=== PATIENT | female | born 1995 | race Caucasian/White ===

== ENCOUNTER → 2017-03-10 | Outpatient (CLI) | payer OTHER ==
--- NOTE | 2017-03-11 07:23 | REP ---
RIGHT ANKLE, FOUR VIEWS: HISTORY: Pain. There is no acute fracture or dislocation. The joint space is normal in appearance. IMPRESSION: There is no acute fracture or dislocation. Signed by Stan Prince MD 03/11/2017 08:30 A
== END ==
LOC: M LRY 17:18
PROVIDERS: ATTEND Nurse Practitioner Family
DX: M25.571 Pain in right ankle and joints of right foot (principal)

== ENCOUNTER → 2017-04-04 | Outpatient (REF) | payer OTHER ==
[2017-04-04 17:00] LABS: MEAN CORPUSCULAR HEMOGLOBIN 31.6 pg (27.0-33.0); MEAN CORPUSCULAR HGB CONC 35.5 g/dl (32.0-36.5); MEAN CORPUSCULAR VOLUME 89.1 fl (80.0-96.0); RED CELL DISTRIBUTION WIDTH 12.1 % (11.5-14.5)
[2017-04-04 17:36] LABS: ALBUMIN/GLOBULIN RATIO 1.18 (1.00-1.93); ALKALINE PHOSPHATASE 74 U/L (45-117); ALT/SGPT 42 U/L (12-78); ANION GAP 9 MEQ/L (8-16); AST/SGOT 16 U/L (15-37); BILIRUBIN,TOTAL 0.4 MG/DL (0.2-1.0); BLOOD UREA NITROGEN 11 MG/DL (7-18); CALCIUM LEVEL 9.2 MG/DL (8.5-10.1); CARBON DIOXIDE LEVEL 25 MEQ/L (21-32); CHLORIDE LEVEL 107 MEQ/L (98-107); CHOLESTEROL LEVEL 186 MG/DL (<200); CREATININE FOR GFR 0.87 MG/DL (0.55-1.02); GLUCOSE, FASTING 83 MG/DL (70-105); SODIUM LEVEL 141 MEQ/L (136-145); TOTAL PROTEIN 7.4 GM/DL (6.4-8.2); TRIGLYCERIDES LEVEL 219 MG/DL (<150)
== END ==
LOC: M SFHCLERA 14:33
PROVIDERS: ATTEND Family Medicine
DX: E66.01 Morbid (severe) obesity due to excess calories (principal); J45.990 Exercise induced bronchospasm; Z13.220 Encounter for screening for lipoid disorders

== ENCOUNTER → 2018-07-16 | Outpatient (REF) | payer OTHER | LOC: M SFHCLERA 09:36 | DX: D36.10 Benign neoplasm of peripheral nerves and autonomic nervous system, unspecified (principal) | CPT/HCPCS: 88305 ==

== ENCOUNTER → 2018-10-22 | Outpatient (REF) | payer OTHER ==
[2018-10-22 17:14] LABS: HEMOGLOBIN A1c 5.2 %
[2018-10-22 17:22] LABS: ALBUMIN 4.1 GM/DL (3.2-5.2); ALT/SGPT 66 U/L (12-78); BILIRUBIN,TOTAL 0.5 MG/DL (0.2-1.0); BLOOD UREA NITROGEN 13 MG/DL (7-18); CALCIUM LEVEL 8.9 MG/DL (8.5-10.1); CARBON DIOXIDE LEVEL 24 MEQ/L (21-32); CHLORIDE LEVEL 109 MEQ/L (98-107); CREATININE FOR GFR 0.95 MG/DL (0.55-1.30); FREE T4 1.19 NG/DL (0.76-1.46); GLOMERULAR FILTRATION RATE > 60.0 (>60); GLUCOSE, FASTING 86 MG/DL (70-100); POTASSIUM SERUM 4.1 MEQ/L (3.5-5.1); PROLACTIN 8.4 NG/ML; SODIUM LEVEL 141 MEQ/L (136-145)
[2018-10-29 00:06] LABS: DEHYDROEPIANDROSTERONE SULFATE 409.2 ug/dL (110.0-431.7)
== END ==
LOC: M SFHCLERA 13:40
PROVIDERS: ATTEND Nurse Practitioner Family
DX: Z68.41 Body mass index [BMI] 40.0-44.9, adult (principal)

== ENCOUNTER → 2019-07-22 | Outpatient (REF) | payer OTHER | LOC: M SFHCLERA 19:54 | PROVIDERS: ATTEND Nurse Practitioner Family | DX: J02.9 Acute pharyngitis, unspecified (principal) ==

== ENCOUNTER 2019-08-10 20:00 | Emergency (ER) | payer OTHER ==
[~2019-08-10] VITALS: Ht 172.7 cm; Wt 124.5 kg
[2019-08-10] MEDS ORDERED: SPIR100T3 PO (20:27)
[2019-08-10] MEDS ORDERED: PHEN-239 PO (20:27)
[2019-08-10] MEDS ORDERED: MULTTAB20 PO (20:27)
[2019-08-10] MEDS ORDERED: ALL10TAB29 PO (20:27)
[2019-08-10] MEDS ORDERED: IBUPROFEN 800 MG TAB PO ONE (20:30)
[2019-08-10] MEDS ORDERED: CYCLOBENZAPRINE 10 MG TAB PO ONE (20:30)
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
[2019-08-10] MEDS ORDERED: IBUP80TA PO (22:01)
[2019-08-10] MEDS ORDERED: CYCL10TA PO (22:01)
[2019-08-10 22:13] VITALS: BP 122/71
--- NOTE | 2019-08-11 09:23 | ED PDOC ---
Post-Departure Follow-Up radiology report faxed to Lesia Gilliland Sarah MD Aug 11, 2019 09:23
== END 2019-08-10 22:14 | disposition home or self-care (01) ==
LOC: M ED 20:00
DX: S29.012A Strain of muscle and tendon of back wall of thorax, initial encounter (principal); V40.9XXA Unspecified car occupant injured in collision with pedestrian or animal in traffic accident, initial encounter; Y92.9 Unspecified place or not applicable; Y93.9 Activity, unspecified; Y99.9 Unspecified external cause status; R16.0 Hepatomegaly, not elsewhere classified; J30.89 Other allergic rhinitis; Z79.899 Other long term (current) drug therapy

== ENCOUNTER 2019-11-24 20:54 | Emergency (ER) | payer OTHER, BC ==
[~2019-11-24] VITALS: Ht 170.2 cm; Wt 121.5 kg
[2019-11-24 20:54] VITALS: BP 135/75
[~2019-11-24 20:54] MED LIST: ALL10TAB29 PO; CYCL10TA PO; IBUP80TA PO; MULTTAB20 PO; PHEN-239 PO; SPIR100T3 PO
[2019-11-24] MEDS ORDERED: TIZA6CAP (20:58)
[2019-11-24] MEDS ORDERED: ESCI10TA2 (20:58)
[2019-11-24] MEDS ORDERED: AUGMENTIN 875 MG TAB PO ONE (21:45)
[2019-11-24] MEDS ORDERED: AUGM875T28 PO (21:45)
[2019-11-24] MEDS ORDERED: ADACEL/BOOSTRIX VACCINE (DIPHTH/PERTUSS/ACELL/TETANUS)0.5ML SYR (90715) IM ONE (21:45)
== END 2019-11-24 22:10 | disposition home or self-care (01) ==
LOC: M ED 20:54
DX: S61.152A Open bite of left thumb with damage to nail, initial encounter (principal); W54.0XXA Bitten by dog, initial encounter; Y92.89 Other specified places as the place of occurrence of the external cause; Y93.K9 Activity, other involving animal care; Y99.0 Civilian activity done for income or pay; J30.9 Allergic rhinitis, unspecified; Z79.899 Other long term (current) drug therapy